=== PATIENT | female | born 1985 | race Caucasian/White ===

== ENCOUNTER → 2017-07-09 | Outpatient (CLI) | payer OTHER ==
[~2017-07-09] MED LIST: AMOX-559 PO; CEFT1VIA57 IM; ESCI20TA38 PO; ETON68IM SQ; METH125V13 IM
--- NOTE | 2017-07-10 11:06 | RADIOLOGY IMAGING REPORT ---
FACILITY: [facility] [place] PATIENT NAME: SHEMAR PLUNKETT : [id number] MR: [id number] V: [id number] EXAM DATE: [id number] ORDERING PHYSICIAN: SY DSOUZA TECHNOLOGIST: Niurka Solorzano PROCEDURE:BILATERAL DIGITAL SCREENING MAMMOGRAM WITH CAD ASSISTED INTERPRETATION & 3D TOMOSYNTHESIS COMPARISON:None. INDICATIONS:BASELINE FAMILY HX BREAST CA FINDINGS: Breast tissue demonstrates scattered fibroglandular densities. There are stable nodular asymmetries in both breasts. There is no dominant mass, suspicious cluster of calcifications or persistent areas of architectural distortion. DIAGNOSTIC CATEGORY 1--NEGATIVE. RECOMMENDATIONS: ROUTINE MAMMOGRAM AND CLINICAL EVALUATION. IMPRESSION: BIRADS 1: Negative Recommend the patient resumes screening mammography in 1 year. Given patient's family history of breast cancer and her sister diagnosed age 29, genetic counseling is available through the oncologist. If it is determined the patient has a lifetime risk of breast cancer greater than 20%, yearly screening MRI is suggested. Dictated by: Den Amado M.D. on 07/10/2017 at 8:24 Transcribed by: LATOSHA on 07/10/2017 at 10:16 Approved by: Den Amado M.D. on 07/10/2017 at 11:05 [facility]
== END ==
LOC: MAMO 00:52
PROVIDERS: ATTEND Nurse Practitioner Family
DX: Z12.31 Encounter for screening mammogram for malignant neoplasm of breast (principal); Z80.3 Family history of malignant neoplasm of breast
CPT/HCPCS: 77063; 77067